=== PATIENT | male | born 1945 | race Caucasian/White ===

== ENCOUNTER 2018-02-20 13:12 | Emergency (ER) | payer OTHER, MEDICARE ==
--- NOTE | 2018-02-20 13:48 | EDPHY ---
H & P Time Seen by Provider: 02/20/18 13:47 HPI/ROS: Chief complaint. Concerned about dehydration HPI. 72-year-old male visiting with his from [facility] here by EMS. They arrived about a week ago. The last 3 evenings he has had leg cramps in his thighs. This morning he got up any had some leg cramps and then felt somewhat nausea and dizzy in with trying to ambulate. He has no unusual swelling to his legs. The cramps are in both legs. He has no chest discomfort. No shortness of breath. No fever. No vomiting or diarrhea. He went for a jog run this morning without symptoms he has had leg cramps in the past. His concern is for electrolytes and dehydration ROS 10 systems were reviewed and negative with the exception of the elements mentioned in the history of present illness Past Medical/Surgical History: Hypertension, dyslipidemia Social History: , nonsmoker, no alcohol Smoking Status: Never smoked Physical Exam: General Appearance: Alert well-developed male mild distress vital signs are stable Eyes: Pupils equal and round no pallor or injection. ENT, Mouth: Mucous membranes are moist. Respiratory: There are no retractions, lungs are clear to auscultation. Cardiovascular: Regular rate and rhythm. Gastrointestinal: Abdomen is soft and nontender, no masses, bowel sounds normal. Neurological: Awake and alert, sensory and motor exams grossly normal. Skin: Warm and dry, no rashes. Musculoskeletal: Neck is supple nontender. Extremities symmetrical, full range of motion. No cramps in his thighs now but he shows me anterior and medial thighs. There is no inflammation. No tenderness to palpation. No leg swelling Psychiatric: Patient is oriented X 3, there is no agitation. Constitutional: Initial Vital Signs Temperature (C) 36.4 C 02/20/18 13:24 Heart Rate 70 02/20/18 13:24 Respiratory Rate 16 02/20/18 13:24 Blood Pressure 153/91 H 02/20/18 13:24 O2 Sat (%) 94 02/20/18 13:24 O2 Delivery Mode Room Air Allergies/Adverse Reactions: No Known Allergies Allergy (Unverified 02/20/18 13:26) Home Medications: Medication Instructions Recorded Aspirin 81mg (*) 02/20/18 Fish Oil [place]-3 Softgel 02/20/18 HCTZ (*) 02/20/18 Irbesartan 02/20/18 Pravastatin Sodium 02/20/18 Medical Decision Making - Diagnostics EKG Interpretation: EKG interpreted by me shows normal sinus rhythm normal interval. There is left axis deviation. QRS is normal there is no significant ST elevation or depression. There is no arrhythmia. The rate is 65 Procedures: IV normal saline, monitor ED Course/Re-evaluation: Re-evaluation 4:00 p.m.. Patient is stable. He and I discussed EKG and lab results. We discussed treatment plan including criteria for return importance of follow-up and further evaluation. He expresses understanding and agreement Differential Diagnosis: Patient has leg cramps to his thighs at night. I considered dehydration as well as electrolyte abnormalities. He has no swelling to his legs or erythema to his thighs suggestive of DVT or cellulitis. No evidence for acute coronary syndrome. - Data Points Laboratory Results: Laboratory Results 02/20/18 14:08 02/20/18 14:08 02/20/18 02/20/18 02/20/18 14:19 14:08 14:08 WBC 7.04 10^3/uL 10^3/uL (3.80-9.50) RBC 4.72 10^6/uL 10^6/uL (4.40-6.38) Hgb 15.2 g/dL g/dL (13.7-17.5) Hct 43.1 % % (40.0-51.0) MCV 91.3 fL fL (81.5-99.8) MCH 32.2 pg pg (27.9-34.1) MCHC 35.3 g/dL g/dL (32.4-36.7) RDW 12.6 % % (11.5-15.2) Plt Count 279 10^3/uL 10^3/uL (150-400) MPV 9.3 fL fL (8.7-11.7) Neut % (Auto) 70.3 % % (39.3-74.2) Lymph % (Auto) 16.3 % % (15.0-45.0) [place] % (Auto) 11.2 % % (4.5-13.0) Eos % (Auto) 1.1 % % (0.6-7.6) Baso % (Auto) 0.7 % % (0.3-1.7) Nucleat RBC Rel Count 0.0 % % (0.0-0.2) Absolute Neuts (auto) 4.94 10^3/uL 10^3/uL (1.70-6.50) Absolute Lymphs (auto) 1.15 10^3/uL 10^3/uL (1.00-3.00) Absolute Monos (auto) 0.79 10^3/uL 10^3/uL (0.30-0.80) Absolute Eos (auto) 0.08 10^3/uL 10^3/uL (0.03-0.40) Absolute Basos (auto) 0.05 10^3/uL 10^3/uL (0.02-0.10) Absolute Nucleated RBC 0.00 10^3/uL 10^3/uL (0-0.01) Immature Gran % 0.4 % % (0.0-1.1) Immature Gran # 0.03 10^3/uL 10^3/uL (0.00-0.10) Sodium 135 mEq/L mEq/L (135-145) Potassium 4.3 mEq/L mEq/L (3.3-5.0) Chloride 100 mEq/L mEq/L (97-110) Carbon Dioxide 27 mEq/l mEq/l (22-31) Anion Gap 8 mEq/L mEq/L (6-14) BUN 21 mg/dL mg/dL (7-23) Creatinine 0.9 mg/dL mg/dL (0.7-1.3) Estimated GFR > 60 Glucose 93 mg/dL mg/dL (70-100) Calcium 9.4 mg/dL mg/dL (8.5-10.4) POC Troponin I 0.01 ng/mL ng/mL (0.00-0.08) Point of Care Test Results: Chemistry 02/20/18 14:19 POC Troponin I 0.01 ng/mL ng/mL (0.00-0.08) Departure - Departure Disposition: Home, Routine, Self-Care Clinical Impression: Bilateral leg cramps Condition: Good Instructions: Leg Cramps (ED) Additional Instructions: Drink plenty of fluids including electrolyte solutions like Gatorade. Try walking in the afternoon or evening. Return for increased pain, swelling of your legs Recheck in 2 days for continuing symptoms Referrals: Patient,NotPresent [Unknown] - As per Instructions
[2018-02-20] MEDS ORDERED: NS 1,000 ML IV ONE (14:00)
[2018-02-20 14:24] LABS: PLATELET COUNT 279 10^3/uL (150-400)
--- NOTE | 2018-02-20 14:45 | CPEKG ---
Test Reason : OPEN Blood Pressure : / mmHG Vent. Rate : 065 BPM Atrial Rate : 065 BPM P-R Int : 183 ms QRS Dur : 088 ms QT Int : 394 ms P-R-T Axes : 038 -04 014 degrees QTc Int : 410 ms Sinus rhythm Abnormal R-wave progression, early transition Confirmed by Hiram Lemus ([id number]) on 02/20/2018 2:45:29 PM Referred By: Confirmed By:Hiram Lemus
[2018-02-20 16:46] VITALS: BP 132/69
== END 2018-02-20 16:46 | disposition home or self-care (01) ==
DX: R25.2 Cramp and spasm (principal); E86.9 Volume depletion, unspecified; E78.5 Hyperlipidemia, unspecified; I10 Essential (primary) hypertension
CPT/HCPCS: 84484-PO